=== PATIENT | female | born 1945 | race Caucasian/White ===

== ENCOUNTER 2020-07-30 10:58 | Inpatient (IN) | payer MEDICARE, OTHER ==
[~2020-07-30] VITALS: Ht 160 cm; Wt 57.0 kg
[2020-07-30 11:56] LABS: Basophils # (auto) 0.1 10 ^3/uL (0-0.2); Basophils % (auto) 1.2 % (0.0-2.0); Eosinophils # (auto) 0.1 10 ^3/uL (0-0.8); Eosinophils % (auto) 1.3 % (0.0-7.0); Hematocrit 46.2 % (36.0-46.0); Hemoglobin 15.5 g/dL (12.2-16.2); Lymphocytes # (auto) 2.8 10 ^3/uL (0.4-5.4); Lymphocytes % (auto) 27.4 % (10.0-50.0); Mean Corpuscular Hemoglobin 30.8 pg (28.0-32.0); Mean Corpuscular Hgb Conc. 33.5 g/dL (32.0-36.0); Mean Corpuscular Volume 91.8 fL (80.0-100.0); Monocytes # (auto) 0.7 10 ^3/uL (0-1.3); Monocytes % (auto) 6.8 % (0.0-12.0); Neutrophils # (auto) 6.4 10 ^3/uL (1.6-8.6); Neutrophils % (auto) 63.3 % (37.0-80.0); Platelet Count (auto) 232 10^3/uL (140-450); Red Blood Cells 5.04 10^6/uL (4.0-5.20); Red Cell Distribution Width 13.4 % (11.8-14.3); White Blood Cell 10.1 10^3/uL (4.4-10.8)
[2020-07-30 12:14] LABS: Albumin 3.5 g/dL (3.4-5.0); Anion Gap 6 (5-15); Blood Urea Nitrogen 12 mg/dL (7-18); Calcium 8.7 mg/dL (8.5-10.1); Carbon Dioxide 23 mmol/L (21-32); Chloride 111 mmol/L (98-107); Glucose 93 mg/dL (74-106); Potassium 4.2 mmol/L (3.5-5.1); Sodium 140 mmol/L (136-145)
[2020-07-30 12:20] LABS: Alanine Aminotransferase 18 U/L (13-56); Alkaline Phosphatase 113 U/L (45-117); Aspartate Aminotransferase 16 U/L (15-37); BUN/Creatinine Ratio 17.1; Bilirubin, Total 0.6 mg/dL (0.2-1.0); GFR African American 105 mL/min; GFR Non-African American 87 mL/min; Total Protein 7.5 g/dL (6.4-8.2)
[2020-07-30] MEDS ORDERED: HYDROcodone-ACET 5/325MG TAB PO PRN (14:30)
[2020-07-30] MEDS ORDERED: NITROGLYCERIN 0.4 MG SL TAB SL PRN (14:30)
[2020-07-30] MEDS ORDERED: SODIUM CHLORIDE 0.9% 1,000 ML IV SCH (14:30)
[2020-07-30] MEDS ORDERED: ACETAMINOPHEN 500 MG TAB PO PRN (14:30)
[2020-07-30] MEDS ORDERED: ONDANSETRON HCL 4 MG/2 ML VIAL IV PRN (14:30)
[2020-07-30] MEDS ORDERED: MORPHINE SULF INJ 2 MG/ML SYRINGE 1ML IV PRN ×2 (14:30)
[2020-07-30 15:02] LABS: Cholesterol 279 mg/dL (< 200); Triglycerides 160 mg/dL (< 150)
[2020-07-30 15:05] LABS: HDL Cholesterol 50 mg/dL (40-59); LDL Cholesterol 196 mg/dL (< 100)
[2020-07-30 17:09] LABS: Urine Bacteria NONE SEEN /hpf (None Seen); Urine Blood Negative /uL (Negative); Urine Specific Gravity 1.009 (1.001-1.035); Urine WBC 7 /hpf (0 - 5)
[2020-07-30] MEDS ORDERED: ACETAMINOPHEN 650 MG RECT SUPP PR PRN (20:15)
[2020-07-30] MEDS ORDERED: LABETALOL HCL 5 MG/ML 4ML SYRINGE IV PRN (20:15)
[2020-07-30] MEDS ORDERED: CLOPIDOGREL BISULFATE 75 MG TAB PO ONE (20:15)
[2020-07-30] MEDS ORDERED: LORazepam 2MG/ML-1ML VIAL IV PRN (20:15)
[2020-07-30] MEDS ORDERED: IOHEXOL 350 MG/ML 100ML IJ ONE (20:58)
[2020-07-30 21:33] VITALS: BP 129/80
--- NOTE | 2020-07-30 21:33 | NUR ---
Tele[facility] admit [facility] admitted to Telemetry unit after SBAR received from INDUSTRIAL MAINTENANCE TECHNICIANSALINA Huggins. Patient oriented to Gee wilson RN, [place] [facility] unit, 280 room, A bed, and unit policies regarding patient care and visiting hours. Patient now on continuous telemetry monitoring, tele box # [id number] and telemetry reading on arrival to unit is sinus rhythm. Patient placed on bedside oxygen, weighed by bedscale and encouraged to call if they need something. All questions and concerns addressed, patient verbalized understanding.
[2020-07-30 22:00] VITALS: BP 129/80
--- NOTE | 2020-07-30 22:28 | NUR ---
Spoke to MD Scherer and clarified medication po order of plavix and lipitor if its ok to give. MD Scherer said it was ok to give now with a little of water, but after keep her NPO. read back and confirmed. will carry out.
[2020-07-30] MEDS: ATORVASTATIN 20 MG TAB PO SCH (22:41)
[2020-07-30] MEDS: SODIUM CHLORIDE 0.9% 1,000 ML IV SCH (22:42)
[2020-07-31] MEDS ORDERED: MULT-1018 PO (00:22)
[2020-07-31 05:00] VITALS: BP 121/67
--- NOTE | 2020-07-31 07:15 | NUR ---
ASSUMED CARE OF PATIENT AWAKE AND ALERT. SIDE RAILS UP X 3. HOB ELEVATED AT LEAST 30 DEGREES, CALL LIGHT WITHIN REACH. BED LOCKED IN LOWEST POSITION. UPDATED PATIENT ON PLAN OF CARE AND TO CALL FOR ASSISTANCE IF NEEDED. ASSISTED WITH ADLS. WILL CONTINUE TO MONITOR.
[2020-07-31] MEDS: SODIUM CHLORIDE 0.9% 1,000 ML IV SCH (09:13)
[2020-07-31] MEDS ORDERED: ASPirin 81 mg TAB PO SCH (10:00)
[2020-07-31] MEDS ORDERED: FAMOTIDINE 20 MG TAB PO SCH (10:00)
[2020-07-31] MEDS: ASPirin 300 MG RECTAL SUPP PR SCH ×2 (10:40→11:23)
--- NOTE | 2020-07-31 10:50 | NUR ---
patient taken down for brain MRI
--- NOTE | 2020-07-31 12:00 | NUR ---
MD ROUNDS WITH DR LOPEZ AT BEDSIDE. ORDERS RECEIVED FOR AN NPO DIET, TO SWITCH PO FAMOTIDINE TO IV AND TO OBTAIN A PHYSICAL THERAPY EVALUATION.
--- NOTE | 2020-07-31 12:54 | NUR ---
PT SEEN FOR SWALLOW EVAL FOR PUREE, MECHANICAL SOFT, THIN AND NECTAR. PT COUGHED WHILE USING STRAWS, WELL WITH THIN LIQUIDS. LINGUAL RESIDUE, POCKETING AND DIFFICULTY WITH BOLUS CONTROL PRESENT WITH MECHANICAL SOFT. DENTITION WITHIN NORMAL LIMITS. PT NOTED TO HAVE EXPRESSIVE APHASIA WITH COMPREHENSION INTACT. EDUCATION PROVIDED REGARDING THICKENED LIQUIDS WITH BODY MECHANICS, 90 DEGREE POSITIONING DURING PO INTAKE, REDUCED RATE AND SPEED WELL NO STRAWS DURING PO INTAKE. NURSING NOTIFIED.
[2020-07-31 13:00] VITALS: BP 130/76
[2020-07-31] MEDS: D5W/SOD CHL 0.45% 1,000 ML IV SCH ×2 (14:32→20:00)
[2020-07-31 16:38] VITALS: BP 120/62
--- NOTE | 2020-07-31 19:09 | NUR ---
ENDORSED CARE TO NOC SHIFT RN
--- NOTE | 2020-07-31 20:24 | NUR ---
DAUGHTER PHONED AND UPDATED ON CARE.
--- NOTE | 2020-07-31 21:30 | NUR ---
SON LEFT PICTURES FOR PATIENT TO VIEW;PT AWAKE AND VIEWING HOLIDAY PICTURES NOW.
[2020-07-31 22:00] VITALS: BP 121/79
[2020-07-31] MEDS: ATORVASTATIN 20 MG TAB PO SCH (22:00)
[2020-08-01] MEDS: cefTRIAXone 1GM/50ML D5W 50 ML IV SCH ×2 (03:21→22:18)
[2020-08-01] MEDS: D5W/SOD CHL 0.45% 1,000 ML IV SCH ×3 (04:00→20:00)
[2020-08-01 05:00] VITALS: BP 109/71
--- NOTE | 2020-08-01 05:45 | NUR ---
PT ABLE TO TURN SELF WITH PROMPTING. DENIES PAIN.CALL LIGHT IN REACH.
--- NOTE | 2020-08-01 06:59 | NUR ---
REPORT GIVEN TO DAYSHIFT.
--- NOTE | 2020-08-01 07:02 | NUR ---
OPENING SHIFT NOTE Assumed care of patient from shift production associate RN. Patient is alert and oriented, patient denies pain, no signs of distress noted. She has expressive aphagia. She was updated on the plan of care and shook her head up and down to express understanding. She has a prieto draining cloudy yellow urine to gravity, no loops or kinks noted in the tubing. She is on oxygen at 2L./min via nasal cannula, saturation is 95%. Bed is locked, in the lowest position, side rails are up x3 and call light was in reach. She was encouraged to call for assistance as needed.
[2020-08-01 09:07] VITALS: BP 128/75
[2020-08-01] MEDS: FAMOTIDINE (10MG/ML) 2ML VL IV SCH (09:40)
[2020-08-01] MEDS: ASPirin 300 MG RECTAL SUPP PR SCH (09:40)
--- NOTE | 2020-08-01 10:10 | NUR ---
CALLED PATIENT'S FAMILY Called patient's daughter Radha. After verification of password she was updated on the patient status and the plan of care. She verbalized understanding and all questions answered. Per daughter patient lives with her , sister and daughter. Family does not want the patient to go to SNF on discharge.
[2020-08-01] MEDS: CLOPIDOGREL BISULFATE 75 MG TAB PO SCH (10:53)
--- NOTE | 2020-08-01 12:04 | NUR ---
Nutrition Assessment Notes Please refer to link for full assessment notes. Est Energy needs: 4470-0619 kcals (20-23 kcal/kgBW) Est Protein needs: 63-69 gms/day (1.0-1.1 gm/kgBW) Will continue to monitor and reassess prn. Addendum: 08/01/20 at [address] Amended: Links added.
[2020-08-01 13:00] VITALS: BP 120/76
--- NOTE | 2020-08-01 15:39 | NUR ---
Pt not wanting to get out of bed today for gait. Pt states she will try tomorrow with physical therapy. Addendum: 08/01/20 at 1540 by Bibiana Sanchez PT Amended: Links added.
[2020-08-01 17:09] VITALS: BP 143/75
--- NOTE | 2020-08-01 17:28 | NUR ---
TOMAS AT BEDSIDE updated on the patient status. Per , call Marco Burgess to see if he wants to do an angioplasty, if not we may consult Rao.
[2020-08-01] MEDS ORDERED: LABETALOL HCL 5 MG/ML 4ML SYRINGE IV PRN (17:45)
--- NOTE | 2020-08-01 19:45 | NUR ---
OPENING SHIFT NOTE PT IS RESTING IN BED WITH EYES OPEN AND RESP RATE IS EVEN AND UNLABORED. PT IS APHASIC BUT USING HANDS AND FACIAL EXPRESSIONS TO COMMUNICATE. SHE ALSO NODS FOR YES AND SHAKES HER HEAD FOR NO. POC DISCUSSED WITH PT AND PT COMMUNICATES BY NODDING YES FOR UNDERSTANDING AND AGREEMENT FOR POC. BED IS LOW, WHEELS ARE LOCKED. AND CALL LIGHT IS WITH IN REACH.
[2020-08-01 22:00] VITALS: BP 133/73
[2020-08-01] MEDS: ATORVASTATIN 20 MG TAB PO SCH (22:18)
--- NOTE | 2020-08-02 01:00 | NUR ---
IV INFILTRATED AND NEW IV STARTED NOW. 22G STARTED IN LEFT WRIST ON FIRST ATTEMPT. PT BENNETT WELL.
[2020-08-02] MEDS: D5W/SOD CHL 0.45% 1,000 ML IV SCH ×3 (04:00→22:16)
--- NOTE | 2020-08-02 04:16 | NUR ---
PT AMB TO BONE DENSITY TECHNICIAN AND IS CONFUSED. PT HAS PULLED OUT HER BAILEY CATH, IV, AND TELE. ESCORTED PT TO HER ROOM AND NOTED TO AMB STEADILY. PT'S LINENS AND GOWN CHANGED. PT PLACED BACK ON TELE. ELECTRIC RAZOR MECHANIC CIARA NOTIFIED OF PT NEEDING A SITTER AT BEDSIDE. AT 0600 SITTER WILL BE ASSIGNED TO PT.
[2020-08-02 05:00] VITALS: BP_SYST 133; BP_SYST 158; BP_DIAS 83; BP_DIAS 98
--- NOTE | 2020-08-02 05:32 | NUR ---
PT APPEARS TO BE SLEEPING. EYES ARE CLOSED AND RESP RATE IS EVEN AND UNLABORED.
--- NOTE | 2020-08-02 06:04 | NUR ---
PT BED ALARM GOING OFF AND PT ASSISTED TO BR. PT NOTED TO AMB WITH STEADY GAIT AND VOIDED WITHOUT DIFFICULTY.
--- NOTE | 2020-08-02 06:25 | NUR ---
EXPLAINED TO PT THAT A NEW IV NEEDS TO BE STARTED. PT GOT VERY UPSET, SHE SAID NO, AND STARTED TO CLIMB OUT OF BED. PT GRABBED TELEPHONE AND TRIED TO DIAL BUT DID NOT KNOW HOW. ASKED PT IF SHE WOULD LIKE TO SPEAK TO HER DAUGHTER IN LAW AND SHE ANSWERED YES. CALLED PT'S DAUGHTER IN LAW RUT AND EXPLAINED THE EVENTS OF THE NIGHT AND THAT PT NEEDS A NEW IV INSERTED. RUT VERBALIZES UNDERSTANDING AND STATES THAT SHE WILL TALK TO THE PT AND HOPEFULLY THAT CALMS THE PT. WILL F/U AFTER PHONE CALL.
--- NOTE | 2020-08-02 06:51 | NUR ---
TRANSFERRED PT'S PHONE CALL TO ROOM AT THIS TIME.
--- NOTE | 2020-08-02 07:30 | NUR ---
Opening Shift Note RECEIVED REPORT FROM NOC RN. Assumed care of patient, awake and alert. PATIENT ON OXYGEN AT 4 LPM VIA NASAL CANNULA WITH no S/S of distress/SOB or pain. BED IN LOWEST, LOCKED POSITION WITH SIDERAILS UP x2 AND CALL LIGHT WITHIN REACH AND SITTER AT BEDSIDE. Instructed on POC and to call for assist PRN, will continue to monitor for changes Q1hr and PRN.
--- NOTE | 2020-08-02 07:50 | NUR ---
SPOKE WITH RUT (DAUGHTER IN LAW). UPDATED ON PATIENT'S STATUS AND POC.
--- NOTE | 2020-08-02 08:27 | NUR ---
SPOKE WITH RUT (DAUGHTER IN LAW), UPDATED ON PATIENT'S STATUS. RUT WILL BE THE SINGLE BOTTLE WASHING MACHINE OPERATOR FOR THIS PATIENT.
[2020-08-02 09:00] VITALS: BP 142/82
--- NOTE | 2020-08-02 09:00 | NUR ---
IV insertion IV access obtained, via clean sterile technique by inserting 22 gauge catheter at LEFT FOREARM after 1 attempt(s). IV secured properly. No trauma to site. Patient tolerated well. NOTE: IV INITIATED BY SALINA DEL CID.
[2020-08-02] MEDS: FAMOTIDINE (10MG/ML) 2ML VL IV SCH (10:55)
[2020-08-02] MEDS: CLOPIDOGREL BISULFATE 75 MG TAB PO SCH (10:56)
[2020-08-02] MEDS: ASPirin-EC 81 mg tab PO SCH (10:56)
[2020-08-02 13:00] VITALS: BP 141/88
[2020-08-02] MEDS ORDERED: CLOPIDOGREL 300 MG TAB PO ONE (13:00)
--- NOTE | 2020-08-02 13:06 | NUR ---
REPORT GIVEN TO SALINA MARIA.
--- NOTE | 2020-08-02 14:34 | NUR ---
CONSENTS SIGNED via telephone with patient's Sal Webster. Verified by this RN and SALINA Nava.
--- NOTE | 2020-08-02 14:40 | NUR ---
ASSUMED CARE OF PATIENT FROM [facility] no signs of distress noted.
--- NOTE | 2020-08-02 16:09 | NUR ---
CALLED PHARMACY FOR PLAVIX per tech they will send up
[2020-08-02 17:00] VITALS: BP 137/86
[2020-08-02 22:10] VITALS: BP 113/66
[2020-08-02] MEDS: cefTRIAXone 1GM/50ML D5W 50 ML IV SCH (22:16)
[2020-08-02] MEDS: ATORVASTATIN 20 MG TAB PO SCH (22:17)
[2020-08-03] MEDS: D5W/SOD CHL 0.45% 1,000 ML IV SCH ×3 (04:00→20:19)
[2020-08-03 05:00] VITALS: BP 105/58
[2020-08-03 07:52] VITALS: BP 127/67
[2020-08-03] MEDS: ASPirin-EC 81 mg tab PO SCH (11:07)
[2020-08-03] MEDS: CLOPIDOGREL BISULFATE 75 MG TAB PO SCH (11:07)
[2020-08-03] MEDS: FAMOTIDINE (10MG/ML) 2ML VL IV SCH (11:08)
[2020-08-03] MEDS ORDERED: guaiFENesin-DM 100/10mg/5ml SYR PO PRN (11:45)
[2020-08-03 12:39] VITALS: BP 123/73
[2020-08-03 17:00] VITALS: BP 130/70
--- NOTE | 2020-08-03 19:05 | NUR ---
OPENING NOTE- NOC SHIFT PATIENT IS IN BED, BED IS LOCKED AT LOWEST POSITION, BED RAILS UP X2 AND HEAD OF BED IS UP >45 DEGREES. BEDSIDE TABLE WITHIN REACH, CALL LIGHT WITHIN REACH. NURSE TECHNICAL PROPOSAL WRITER AT BEDSIDE FOR SAFETY PRECAUTIONS. PATIENT IS ALERT X1 TO SELF. WILL CONTINUE TO MONITOR Q1H AND PRN.
[2020-08-03 21:01] VITALS: BP 159/79
[2020-08-03] MEDS: cefTRIAXone 1GM/50ML D5W 50 ML IV SCH (21:29)
[2020-08-03] MEDS: ATORVASTATIN 20 MG TAB PO SCH (21:29)
[2020-08-04] VITALS (9 sets, daily range): BP systolic 117–155; BP diastolic 54–72
--- NOTE | 2020-08-04 00:30 | NUR ---
PATIENT AMBULATING ROUNDS AROUND THE NURSING STATION WITH SITTER. MASK ON.
[2020-08-04] MEDS: D5W/SOD CHL 0.45% 1,000 ML IV SCH ×3 (04:06→22:12)
--- NOTE | 2020-08-04 06:45 | NUR ---
PATIENT OUT OF BED FOR COMPLETE LINEN CHANGE. STEADY GAIT NOTED. NURSE BEHAVIOR ANALYST REMAINS AT BEDSIDE FOR SAFETY PRECAUTIONS.
--- NOTE | 2020-08-04 07:10 | NUR ---
ENDORSED PATIENT CARE TO DAY SHIFT NURSE KAYLYN DOWNING. ENDORSED FOLLOW UP OF SIGNED ANESTHESIA AND BLOOD CONSENTS FOR PATIENT. PATIENT IS COMFORTABLE IN BED. NURSE GUEST SERVICES AT BEDSIDE FOR SAFETY PRECAUTIONS.
--- NOTE | 2020-08-04 08:35 | NUR ---
Patient resting comfortably in bed with no distress noted. Sitter at bedside. Patient stable.
--- NOTE | 2020-08-04 08:58 | NUR ---
Pt is independent with all functional mobilty tasks and no longer requires skilled PT. She can ambulate with nursing without an assistive device. Addendum: 08/04/20 at 0858 by MARCK PINEDA PT Amended: Links added.
[2020-08-04] MEDS: ASPirin-EC 81 mg tab PO SCH (10:00)
[2020-08-04] MEDS: FAMOTIDINE (10MG/ML) 2ML VL IV SCH (10:29)
[2020-08-04] MEDS: CLOPIDOGREL BISULFATE 75 MG TAB PO SCH (10:30)
--- NOTE | 2020-08-04 10:30 | NUR ---
Scheduled medication given per order. Patient resting comfortably in bed with sitter at bedside.
[2020-08-04 10:39] LABS: Basophils # (auto) 0.1 10 ^3/uL (0-0.2); Basophils % (auto) 0.8 % (0.0-2.0); Eosinophils # (auto) 0.2 10 ^3/uL (0-0.8); Eosinophils % (auto) 2.5 % (0.0-7.0); Hematocrit 41.7 % (36.0-46.0); Hemoglobin 13.7 g/dL (12.2-16.2); Lymphocytes # (auto) 2.6 10 ^3/uL (0.4-5.4); Lymphocytes % (auto) 26.6 % (10.0-50.0); Mean Corpuscular Hemoglobin 30.3 pg (28.0-32.0); Mean Corpuscular Hgb Conc. 32.8 g/dL (32.0-36.0); Mean Corpuscular Volume 92.5 fL (80.0-100.0); Monocytes # (auto) 0.9 10 ^3/uL (0-1.3); Neutrophils % (auto) 61.1 % (37.0-80.0); Platelet Count (auto) 204 10^3/uL (140-450); Red Blood Cells 4.51 10^6/uL (4.0-5.20); White Blood Cell 9.7 10^3/uL (4.4-10.8)
[2020-08-04 10:54] LABS: Albumin 2.8 g/dL (3.4-5.0); Calcium 8.6 mg/dL (8.5-10.1); Potassium 3.5 mmol/L (3.5-5.1)
[2020-08-04 10:59] LABS: BUN/Creatinine Ratio 8.8; Bilirubin, Total 0.6 mg/dL (0.2-1.0); Total Protein 6.4 g/dL (6.4-8.2)
--- NOTE | 2020-08-04 11:43 | NUR ---
Patient taken to Welt Pocket Machine Operator for procedure.
[2020-08-04] MEDS ORDERED: IOHEXOL 350 MG/ML 100ML IJ ONE ×2 (11:56→12:41)
[2020-08-04] MEDS ORDERED: LIDOCAINE 2%HCL (LOCAL ANESTH.) INJ 20ML MDV ONE (11:56)
[2020-08-04] MEDS ORDERED: GLYCOPYRROLATE 0.2 MG/ML 1ML VIAL ONE (12:28)
[2020-08-04] MEDS ORDERED: ANGIOMAX 250 MG VIAL IV ONE (12:28)
[2020-08-04] MEDS ORDERED: SODIUM CHL 0.9% 50 ML ONE (12:28)
[2020-08-04] MEDS ORDERED: ATROPINE SULF 1 MG/10ml SYR ONE (12:38)
[2020-08-04] MEDS ORDERED: DOPamine 1600MCG/ML D5W 250 ML IV ONE (12:39)
[2020-08-04] MEDS ORDERED: PHENYLEPHRINE HCL 10 MG/ML VL ONE (12:39)
--- NOTE | 2020-08-04 12:43 | NUR ---
Nutrition Followup Note Wt 62.2kg Pt was off unit today d/t to procedure. pt was taken to senior laboratory technician. Pt consumed 50% of po intake 08/03 per RN note, pt NPO today d/t to procedure. Will monitor pt diet adv and tolerance of diet following procedure Est Energy needs: 5890-7093 kcals (20-23 kcal/kgBW) Est Protein needs: 63-69 gms/day (1.0-1.1 gm/kgBW) Will continue to monitor and reassess prn. Labs: BUN 6L, Alb 2.8L BM: Pt with 1 BM 08/04 per RN note Skin: BS 21 low risk, full details in manager critical care note PES Altered nutrition related lab values r/t current/chronic medical condition aeb dyslipidemia Comments Will continue to monitor PO status, skin status, pertinent labs and weight trends. Will f/u in 3-5 days 1) Continue to closely monitor pt PO intake to meet at least 75% of meals 2) Continue current plan of care Expected Outcomes/Goals: Pt appetite to meet at least 75% PO intake Pt labs to improve
[2020-08-04 13:39] LABS: INR 1.03 (0.9-1.15); Partial Thromboplastin Time 27.2 sec (23.0-31.2)
[2020-08-04] MEDS ORDERED: cloNIDine HCL 0.1 MG TAB PO PRN (15:00)
--- NOTE | 2020-08-04 15:13 | NUR ---
Patient taken to telemetry unit via bed, teletypesetter monitor in place. NAD noted upon departure. Patient stable for transport. Primary RNJeane present at bedside to witness right groin site benign, no s/s of bleeding or hematoma formation. Dressing is CDI. Bed set in lowest locked position with side rails up x 2, call light is within reach and bed alarm set on for safety. Care endorsed to SALINA Ching.
--- NOTE | 2020-08-04 15:20 | NUR ---
Patient returned to unit in stable condition with clean, dry dressing in right groin. Patient instructed to lay flat till 1630; then bedrest for the following four hours. Sitter at bedside.
--- NOTE | 2020-08-04 15:47 | NUR ---
Assessment Patient is a 75-year-old female who is unable to speak at this time. Assessment was completed with patient daughter in law Ghada. Prior to admission patient lived home with family and functioned independently. Ghada informed me patient had a stroke on 07/30/20. Prior to patient getting a stroke she was able to care for her own ADL's with no DME assistance. Patient will return home to her prior living arrangements post discharge and Ghada will transport patient home. Advised Ghada there is a social service consult for home health physical therapy, speech therapy and medication management. Information and choice letter was given to Ghada. Ghada did not have a home health preference and requested [facility] that doctor recommended. Ghada requested a walker with seat for patient. Informed Ghada bedside nurse will be informed. Informed Ghada she has the right to participate in all discharge planning. Ghada verbalized understanding and agreed to discharge plan. Faxed clinical information to [facility]. Per Keyla with [facility] patient has been accepted and service to start within 24-48hrs upon d.c day. Informed SALINA Ching regarding order for walker with seat. Pending on DME order. Addendum: 08/04/20 at 1558 by ROSIE MORRIS Amended: Links added.
--- NOTE | 2020-08-04 18:15 | NUR ---
Patient lying flat in bed with sitter at bedside. Patient stable throughout shift.
--- NOTE | 2020-08-04 18:40 | NUR ---
Received call from Radha, [id number]. [phone]. Patient in sitting in bed; awake and alert, but unable to answer simple questions at this time. Sitter at bedside to assist with dinner. Will continue to monitor patient.
--- NOTE | 2020-08-04 20:06 | NUR ---
PAGED DR MORENO REGARDING CHANGE IN PATIENT STATUS. PATIENT IS NON VERBAL, FOLLOWS COMMANDS. PER REPORT FROM DAY SHIFT NURSE KAYLYN DOWNING THIS IS A CHANGE THAT SHE NOTICED AT 1820. PER KAYLYN DOWNING AND FAMILY PATIENT WAS VERBAL RESPONDING IN COMPLETE SENTENCES AT 1700.
--- NOTE | 2020-08-04 20:20 | NUR ---
SECOND CALLED TO DR MORENO TO MAKE HIM AWARE OF PATIENT CHANGE OF STATUS, NO RESPONSE. AWAITING CALL BACK.
--- NOTE | 2020-08-04 21:45 | NUR ---
REPORT GIVEN TO ICU NURSE DARLENE DOWNING.
[2020-08-04] MEDS: ATORVASTATIN 20 MG TAB PO SCH (22:00)
[2020-08-04] MEDS ORDERED: MANNITOL 20% SOLN 100 gm/500ml 500 ML IV ONE (22:00)
[2020-08-04] MEDS: cefTRIAXone 1GM/50ML D5W 50 ML IV SCH (22:00)
--- NOTE | 2020-08-04 22:00 | NUR ---
ASSUMED CARE OF PT FROM RUT DOWNING. PT TRANSFERRED TO ICU FROM TELEMETRY S/P LEFT CAROTID ENDARECTOMY WITH STENT PLACED BY DR. DELA CRUZ. PER REPORT UPON ASSESSMENT AFTER THE PROCEDURE THE PT STARTED TO HAVE A CHANGE IN NEURO STATUS. CT WAS DONE WITH RESULTS CALLED TO DR. MARIN. PT NOTED WITH RIGHT SIDED WEAKNESS, LEFT SIDED FACIAL DROOP AND UNEQUAL GLASS HANDLER UPON ARRIVAL TO ICU. PUPILS REACTIVE TO LIGHT, NO GAG REFLEX NOTED WITH TOUNGE DEPRESSOR. SR NOTED ON MONITOR. RR EVEN AND UNLABORED. LUNGS CLEAR AND DIMINISHED. PT NOTED ON 5L NC SATS > 96%. SKIN INTACT, WARM TO TOUCH. AFEBRILE. BAILEY CATH PLACED WITH CLEAR YELLOW URINE NOTED. 18 GAUGE HEPLOCK PLACED TO RIGHT HAND, PATENT, FLUSHING WELL. MANNITOL STARTED PER MD ORDERS. PT PLACED AT 30 DEGREE ANGLE. BED IN LOW POSITION AND CALL LIGHT IN REACH. DR MARIN UPDATED ON PT'S STATUS AND REQUESTING HIGHER LEVEL OF CARE. PT'S FAMILY CONTACTED @ [phone] SPOKE WITH KRISTYN OTONIEL (PT'S ) AND RUT (PT'S DAUGHTER). UPDATED AND AWARE OF PLAN OF CARE. VERBALIZES UNDERSTANDING. CHARGE NURSE CON[facility]CTING [facility]. WILL CONTINUE TO MONITOR PT AND ASSESS NEURO STATUS.
[2020-08-05] VITALS (8 sets, daily range): BP systolic 117–155; BP diastolic 47–99
--- NOTE | 2020-08-05 00:57 | NUR ---
PT ACCEPTED TO [facility] BY DR. MATTHEW SALCEDO REPORT CALLED TO [phone] UNIT [phone] BED [phone] # 2
--- NOTE | 2020-08-05 03:08 | NUR ---
REPORT GIVEN TO SALINA HAGER
--- NOTE | 2020-08-05 03:35 | NUR ---
PT TRANSFERRED VIA CCT TO [facility], REPORT GIVEN AT BEDSIDE TO ИВАН.
== END 2020-08-05 01:01 | disposition short-term general hospital (02) | DRG 34 ==
LOC: EDSEX 10:58 → EDBD 10:58 → ER 10:58 → EDUNIT# 10:58 → TELE 10:59 → TELE-WESTW 21:33 → ICU WEST 08-04 21:55
PROVIDERS: ADMIT Nurse Practitioner Acute Care; ATTEND Family Medicine
PROC: 0T9B70Z Drainage of Bladder with Drainage Device, Via Natural or Artificial Opening (ICD-10-PCS; principal; 2020-07-31)
PROC: 037L3DZ Dilation of Left Internal Carotid Artery with Intraluminal Device, Percutaneous Approach (ICD-10-PCS; 2020-08-04)
PROC: B3181ZZ Fluoroscopy of Bilateral Internal Carotid Arteries using Low Osmolar Contrast (ICD-10-PCS; 2020-08-04)
DX: I63.232 Cerebral infarction due to unspecified occlusion or stenosis of left carotid arteries (principal); I61.5 Nontraumatic intracerebral hemorrhage, intraventricular; I60.9 Nontraumatic subarachnoid hemorrhage, unspecified; N39.0 Urinary tract infection, site not specified; Z20.828 Contact with and (suspected) exposure to other viral communicable diseases; I10 Essential (primary) hypertension; G83.21 Monoplegia of upper limb affecting right dominant side; E78.00 Pure hypercholesterolemia, unspecified; H53.461 Homonymous bilateral field defects, right side; I49.3 Ventricular premature depolarization; F01.50 Vascular dementia, unspecified severity, without behavioral disturbance, psychotic disturbance, mood disturbance, and anxiety; F17.210 Nicotine dependence, cigarettes, uncomplicated; H53.47 Heteronymous bilateral field defects; Z90.710 Acquired absence of both cervix and uterus; Z79.899 Other long term (current) drug therapy; I69.320 Aphasia following cerebral infarction; Z79.891 Long term (current) use of opiate analgesic
CPT/HCPCS: 36415; 70450; 70496; 70498; 70551; 71045; 80053; 80061; 81001; 82962; 84443; 84484; 85025; 85610; 85730; 86850; 86900; 86901; 87081; 87086; 92610; 93306; 93886; 97110; 97116; 97163; 97530; 99291; A4565; G0378; J0696; J3490